=== PATIENT | male | born 1935 | race Hispanic/Latino ===

== ENCOUNTER → 2023-07-29 | Day surgery (SDC) | payer MEDICARE ==
[~2023-07-29] MED LIST: ALTOPREV40 MG PO; JARDIANCE10 MG PO; LEVOTHYROXINE75 MCG PO; LIDOCAINE HCL 2% LOCAL INJ 5 ML SDV VIAL INJ ONE; MAGNESIUM100 MG PO; PROPOFOL IV EMULSION 10 MG/ML 20 ML VIAL ONE; PROTONIX20 MG PO; SYMBICORT 16010.2 GM INH; VITAMIN D3125 MCG PO; ZESTRIL40 MG PO
[2023-07-29] MEDS: LACTATED RINGER'S 1,000 ML ONE (08:09)
[2023-07-29 11:40] VITALS: BP 107/62; PULSE 78; RESP 14; O2SAT 98
== END | disposition home or self-care (01) ==
LOC: OR 07:41
PROVIDERS: ATTEND Internal Medicine Gastroenterology
DX: K21.00 Gastro-esophageal reflux disease with esophagitis, without bleeding (principal); K29.50 Unspecified chronic gastritis without bleeding; K25.9 Gastric ulcer, unspecified as acute or chronic, without hemorrhage or perforation; K44.9 Diaphragmatic hernia without obstruction or gangrene; Z86.010 Personal history of colon polyps; I10 Essential (primary) hypertension; E78.5 Hyperlipidemia, unspecified; J44.9 Chronic obstructive pulmonary disease, unspecified; E03.9 Hypothyroidism, unspecified; G61.0 Guillain-Barre syndrome; Z88.8 Allergy status to other drugs, medicaments and biological substances; Z88.1 Allergy status to other antibiotic agents; Z91.040 Latex allergy status; Z79.84 Long term (current) use of oral hypoglycemic drugs; Z79.899 Other long term (current) drug therapy; Z87.891 Personal history of nicotine dependence; Z80.0 Family history of malignant neoplasm of digestive organs
CPT/HCPCS: 43239; 88305; 88342; J2001; J2704; J7121